=== PATIENT | male | born 1980 | race Hispanic/Latino ===

== ENCOUNTER → 2022-02-21 15:49 | Outpatient (CLI) | payer OTHER, SELFPAY ==
--- NOTE | 2022-02-21 | DI.ECHO.S_ITS ---
[place] [facility]+ [facility] +---------+ : : [address] : : : : [id number] : : : : Phone: [phone]+ Echocardiogram Report + + :Name: ISATU ISLAS Study Date: 02/21/2022 Height: 72 in : :[facility] ReadingLocation: Weight: 275 lb : : Gender: Male BSA: 2.4 m2 : :: 1980 Age: 41 yrs BP: 159/106 mmHg: :Reason For Study: HYPERTENSION : :Ordering Physician: NORRIS, : :TIA Grijalva Performed By: Loulou Fuller : :Referring: TIA PISANO : + + Interpretation Summary 1) Normal left ventricular size, thickness, wall motion, and systolic function (EF 55-60%). 2) Normal right ventricular size and function. 3) No significant valvular abnormalities. 4) Hypertension present during the study (BP 159/106mm Hg). 5) No prior Echo available for comparison. Procedure: A two-dimensional transthoracic echocardiogram with color flow and Doppler was performed. The study quality was technically adequate. There is no prior echocardiogram noted for this patient. The patient was in sinus bradycardia with heart rates between 48-55 bpm during the exam. Left Ventricle: The left ventricle is normal in size and wall thickness. The ejection fraction is estimated to be 55-60%. Left ventricular systolic function appears normal without focal wall motion abnormalities. Diastolic parameters suggest probable normal left ventricular diastolic function and normal filling pressures. Right Ventricle: The right ventricle is normal in size and function. Atria: The left atrial size is normal. Right atrial size is normal. There is no Doppler evidence for an interatrial shunt. Mitral Valve: The mitral valve is normal in structure and function. There is mild mitral regurgitation. Aortic Valve: The aortic valve is trileaflet. The aortic valve opens well. There is no aortic valve stenosis. No aortic regurgitation is present. Tricuspid Valve: The tricuspid valve is normal in structure and function. There is a trace or physiologic amount of tricuspid regurgitation. Pulmonic Valve: The pulmonic valve leaflets are thin and pliable; valve motion is normal. There is no pulmonic valvular regurgitation. Great Vessels: The aortic root is normal size. The dimensions of the ascending aorta are normal. The IVC is of normal diameter and collapses greater than 50% with a sniff. This suggests a low right atrial pressure of 3 mm Hg. Pericardium/ Pleura There is no pericardial effusion. There is no pleural effusion. MMode/2D Measurements & Calculations LVIDd: 5.1 cm LVOT diam: 2.2 cm LVIDs: 3.4 cm Ao root diam: 3.2 cm FS: 32.8 % asc Aorta Diam: 3.4 cm IVSd: 0.88 cm Ao Arch Diam (Prox Trans): 2.9 cm LVPWd: 0.81 cm LV smith. diameter/BSA (cm/m^2): 2.1 LV sys. diameter/BSA (cm/m^2): 1.4 LA A2 area: 23.9 cm2 RA long axis: 6.1 cm LA A4 area: 20.9 cm2 RA area: 18.3 cm2 LA length (vol): 5.8 cm RA vol: 46.4 ml LA vol: 72.3 ml RA : 19.0 ml/m2 LA vol index: 29.7 ml/m2 IVC diam: 1.9 cm RVD1 (basal): 3.7 cm RVD2 (mid): 4.1 cm TAPSE: 1.9 cm Doppler Measurements & Calculations Ao V2 max: 144.6 cm/sec LVOT Max Aniceto: 96.2 cm/sec Ao V2 mean: 96.0 cm/sec LV V1 max P.7 mmHg Ao max P.4 mmHg LV V1 VTI: 21.2 cm Ao mean P.3 mmHg AIDA(I,D): 2.7 cm2 Ao V2 VTI: 30.7 cm AIDA(V,D): 2.6 cm2 sev ratio: 0.69 AIDA indexed to BSA (cm^2/m^2): 1.1 MV E max aniceto: 88.1 cm/sec PA V2 max: 129.3 cm/sec MV A max aniceto: 46.7 cm/sec PA V2 mean: 88.7 cm/sec MV E/A: 1.9 PA mean P.6 mmHg Med Peak E' Aniceto: 9.5 cm/sec PA pr(Accel): 32.8 mmHg E/E' med: 9.3 Lat Peak E' Aniceto: 13.9 cm/sec E/E' lat: 6.3 E/e' average: 7.8 MV dec time: 0.21 sec SV(LVOT): 83.1 ml Reading Physician:05:54 PM
== END ==
PROVIDERS: Referring Provider Family Medicine; Visit Provider Family Medicine
DX: I34.0 Nonrheumatic mitral (valve) insufficiency (principal); R06.89 Other abnormalities of breathing; I10 Essential (primary) hypertension; R53.83 Other fatigue; R06.00 Dyspnea, unspecified
CPT/HCPCS: 93306

== ENCOUNTER → 2022-08-06 09:36 | Outpatient (CLI) | payer OTHER, SELFPAY ==
--- NOTE | 2022-08-06 09:39 | DI.MRI.S_ITS ---
PROCEDURE: MR CERVICAL SPINE WO CON INDICATIONS: RADICULOPATHY CERVICAL REGION/PARESTHESIA OF SKIN TECHNIQUE: Noncontrast sagittal T1 spin echo and T2 fast spin echo, sagittal STIR, foraminal oblique sagittal T2 fast spin echo, and axial gradient echo or T2 fast spin echo through the cervical spine. COMPARISON: None. FINDINGS: Image quality: Excellent. Alignment and Curvature: Normal cervical vertebral body height and alignment. Bone Marrow: No suspicious focal marrow signal abnormality or bone marrow edema. Spinal Cord: Visualized spinal cord has normal size and signal. No cerebellar tonsillar herniation. Regional Soft Tissues: Prevertebral and paraspinous soft tissues are within normal limits. C2-C3: No spinal canal or neural foraminal stenosis. C3-C4: Moderate left and mild right neural foraminal narrowing due to facet and uncovertebral hypertrophy. No spinal canal stenosis. C4-C5: Mild spinal canal stenosis due to posterior disc-osteophyte complex flattening the ventral cord. Mild bilateral neural foraminal narrowing due to facet and uncovertebral hypertrophy. C5-C6: Bradley's spinal canal stenosis due to posterior disc osteophyte complex flattening and posteriorly displacing the cord with near complete effacement of CSF surrounding the cord. Facet and uncovertebral hypertrophy combine to produce severe left and moderate right neural foraminal stenosis. C6-C7: Mild spinal canal stenosis due to posterior disc osteophyte complex. Moderate bilateral neural foraminal narrowing. C7-T1: No spinal canal or neural foraminal stenosis. IMPRESSION: Multilevel multifactorial degenerative changes, worst at C5-C6. Dictated by: Eliazar Szymanski M.D. on 08/07/2022 at 9:10 Approved by: Eliazar Szymanski M.D. on 08/07/2022 at 9:13
== END ==
PROVIDERS: PCP Family Medicine; Referring Provider Family Medicine; Visit Provider Family Medicine
DX: M47.22 Other spondylosis with radiculopathy, cervical region (principal); R20.2 Paresthesia of skin
CPT/HCPCS: 72141

== ENCOUNTER → 2022-09-20 14:10 | Outpatient (CLI) | payer OTHER, SELFPAY ==
[2022-09-20 15:14] LABS: COVID19 -Nasal RAPID Negative (Negative)
--- NOTE | 2022-09-20 20:29 | DI.NM.S_ITS ---
DATE OF SERVICE: 09/20/2022 PROCEDURE: Exercise stress test. INDICATION: Chest pain. CARDIAC STRESS: The patient underwent exercise stress test under the supervision of an attending staff using standard [place] protocol. He walked on Chester protocol for about 9 minutes and 41 seconds, achieved maximum heart rate of 163, which was 92 percent of target heart rate. Baseline blood pressure 138/90 and peak blood pressure 180/96 mmHg. Baseline rhythm was sinus. During stress, no convincing ischemic changes seen. No significant arrhythmias seen. At the peak exercise, patient has dull, on a scale of 1-10, four in intensity chest discomfort, which got resolved 5 minutes in recovery. At that time, no ischemic changes or significant arrhythmias seen. Had some shortness of breath, as well. CONCLUSION: Exercise stress test is negative for inducible ischemia. The patient walked on [place] protocol for 9 minutes and 41 seconds, achieved 10.1 metabolic equivalents of workload and functional aerobic impairment positive 18 percent. Baseline blood pressure 138/90 mmHg and peak blood pressure 180/96 mmHg. At the peak exercise, mild chest discomfort, which got resolved in 5 minutes in recovery without any associated ischemic changes or significant arrhythmias. Overall, low-risk exercise stress test. David Mitchel - RODOLFO/abdirashid/radha doc#: [id number]/job#: [id number] dd: 09/20/2022 17:30:00 dt: 09/20/2022 19:18:00 DICTATING /COPIES TO: Chandler Peraza MD COPIES MNE: VANESSA;
== END ==
PROVIDERS: PCP Family Medicine; Referring Provider Internal Medicine Cardiovascular Disease; Visit Provider Internal Medicine Cardiovascular Disease
DX: R07.9 Chest pain, unspecified (principal); Z20.822 Contact with and (suspected) exposure to COVID-19
CPT/HCPCS: 87635; 93017

== ENCOUNTER 2024-12-24 18:18 | Emergency (ER) | payer OTHER, SELFPAY ==
[2024-12-24 18:27] VITALS: BP 155/100; PULSE 76; RESP 14; TEMP 36.6; O2SAT 97; BMI 37.3
--- NOTE | 2024-12-24 18:32 | DI.RAD.S_ITS ---
PROCEDURE: XR FINGER RT MIN 2V INDICATIONS: crush injury TECHNIQUE: AP hand, 2 views of the right 5th finger(s) acquired. COMPARISON: None. FINDINGS: Bones: No fractures or dislocations. No suspicious bony lesions. Soft tissues: No suspicious soft tissue calcifications. IMPRESSION: No acute bony abnormality. Dictated by: Neha Houston M.D. on 12/24/2024 at 19:17 Approved by: Neha Houston M.D. on 12/24/2024 at 19:18
--- NOTE | 2024-12-24 21:31 | ED_ITS ---
HPI - Extremity Injury (Upper) General Chief Complaint: Extremity Injury, Upper Stated Complaint: rt 5th finger cut Time Seen by Provider: 12/24/24 20:46 Source: patient Mode of arrival: Ambulatory History of Present Illness HPI narrative: 44-year-old male right-handed, caught 5th finger tip in part of his truck, smashed laceration injury about 5:30 p.m. tonight 4 hours ago. Last tetanus shot to date. No other injuries. No redness or streaking or swelling to the hand. No pain palmar right hand, other fingers of the right hand, right wrist, right forearm, right elbow, right upper arm or shoulder. Related Data Previous Rx's Medication Instructions Recorded cephalexin 500 mg capsule 500 mg PO QID 7 days #28 caps 12/25/24 hydrocodone 5 mg-acetaminophen 325 1 tab PO Q6H PRN pain #7 tabs 12/25/24 mg tablet Allergies Allergy/AdvReac Type Severity Reaction Status Date / Time No Known Drug Allergies Allergy Verified 12/25/24 00:45 Patient History Social History Smoking Status: Never smoker Smoking Status: Never smoker Exam Narrative Exam Narrative: GENERAL: Well-developed patient, in mild distress. HEAD: Atraumatic. Normocephalic. EYES: Pupils equal round and reactive. Extraocular motions intact. No scleral icterus. No injection or drainage. ENT: Nose without bleeding, purulent drainage. Throat without erythema, tonsillar hypertrophy or exudate. Airway patent. NECK: Trachea midline. Non tender CARDIOVASCULAR: Regular rate and rhythm without murmurs, gallops, or rubs. RESPIRATORY: Clear to auscultation. Breath sounds equal bilaterally. No wheezes, rales, or rhonchi. GASTROINTESTINAL: Abdomen soft, non-tender, nondistended. EXTREMITIES: Right hand with volar distal 5th finger tip laceration about 1.5 cm horizontal 90 degress pizza shape, able to flex and extend finger, no subungual hematoma in the opposite side. No visible foreign body or tendon or bone structures. BACK: Nontender without deformity or crepitance. No flank tenderness. NEURO: AOx3. Motor functions grossly nonfocal. SKIN: No rash or erythema of visible areas Initial Vital Signs Initial Vital Signs: Vital Signs Temperature 97.8 F 12/24/24 18:27 Pulse Rate 76 12/24/24 18:27 Respiratory Rate 14 12/24/24 18:27 Blood Pressure 155/100 H 12/24/24 18:27 Pulse Oximetry 97 12/24/24 18:27 Oxygen Delivery Method Room Air 12/24/24 18:27 Procedures Laceration Repair Laceration 1: Time of procedure: 01:15 Site: hand (fifth finger) Side (If applicable): right Size (cm): 1.5 Description: irregular (L shaped volar fingertip fifth finger) Depth: simple, single layer Local Anesthetic: lidocaine 1% (digital block) Amount of anesthesia used (mL): 4 Skin layer closed with: nylon Skin layer suture size: 4-0 Number of sutures: 6 Technique: simple, interrupted Course Orders Ordered: ED Orders 12/24/24 18:32 XR finger RT min 2V Stat Discontinued Medications Hydrocodone Bitart/Acetaminophen (Hydrocodone/Acet 5/325 Prepack) 1 bottle MISC DIRECTED ONE Stop: 12/25/24 01:34 Last Admin: 12/25/24 01:42 Dose: 1 bottle Documented By: Bacitracin (Bacitracin Oint 0.9 Gm Pckt) 1 applic TOP NOW ONE Stop: 12/25/24 01:20 Last Admin: 12/25/24 01:22 Dose: 1 applic Documented By: Cephalexin HCl (Cephalexin 250 Mg Capsule) 500 mg PO NOW ONE Stop: 12/25/24 01:29 Last Admin: 12/25/24 01:41 Dose: 500 mg Documented By: Lidocaine HCl (Lidocaine 1% 20 Ml) 3 ml SUBCUT NOW ONE Stop: 12/25/24 00:45 Last Admin: 12/25/24 00:51 Dose: 3 ml Documented By: MR Vital Signs Vital signs: Vital Signs - 8 hr 12/25/24 01:45 Temperature 97.8 F Pulse Rate 62 Respiratory Rate 14 Blood Pressure 146/91 H Oxygen Delivery Method Room Air MDM - Extremity Injury (Upper) MDM Narrative Medical decision making narrative: 44-year-old right-handed male sustained laceration injury to the right 5th fingertip, laceration. Tetanus up-to-date. NKDA. We will need primary closure. X-ray from triage showed no evidence of fracture. See radiology report. Wound closed with digital block, 6 simple interrupted sutures to close L-shaped wound. Antibiotic ointment, Xeroform, finger splint. Wound check advised in 2 days. At risk of infection given crush injury component. Wound check 2 days with regular provider, or with Orthopedic surgery on-call Dr. Angel null, or here in the emergency department if other interim can not be made. Home with family. Home pack hydrocodone to use if needed. Prescription further antibiotics sent to pharmacy. Discharge Plan Departure Patient Disposition: Home Clinical Impression: Finger laceration Instructions: DI for Laceration Repair -- Finger Activity Restrictions/Additional Instructions: Mr Hernandez, You had smashed laceration injury to the right 5th finger fingertip, with L- shaped laceration that was closed after digital and local injection block with 6 simple sutures of nylon. X-ray prior to closure showed no fracture changes. Crush injury increases your risk for wound infection. Antibiotics cephalexin given, with prescription for further antibiotic course to take to hopefully help prevent infection. Take pain medications as needed. Consider ibuprofen as well. Hydrocodone home pack and prescription provided for use if needed. Recheck wound with your regular doctor. Or with local orthopedic surgeon Dr. Lees as listed on-call, his office information provided. Dressing change of the time of wound check in 2 days. Suture removal typically is at 7 days, but might need to happen earlier if there is developing wound infection changes. Your tetanus was up-to-date by report. Recheck earlier to this/nearest emergency department for any change worsening symptoms or any concerns prior. Thank you for allowing [facility] to take care view today. Prescriptions: New cephalexin 500 mg capsule 500 mg PO QID 7 Days Qty: 28 0RF hydrocodone-acetaminophen 5-325 mg tablet 1 tab PO Q6H PRN (Reason: pain) Qty: 7 0RF Referrals: Gloria Palacios DO [Primary Care Provider] - José Luis Lees MD [Physician] - Stand Alone Forms: Patient Portal/API/Survey
--- NOTE | 2024-12-24 23:49 | PC.NURSE ---
tetanus is up to date
[2024-12-25] MEDS: LIDOCAINE 1% 20 ML 3 ML SUBCUT (00:51)
[2024-12-25] MEDS: BACITRACIN OINT 0.9 GM PCKT 1 APPLIC TOP (01:22)
--- NOTE | 2024-12-25 01:33 | PC.NURSE ---
Finger cleaned, Bacitracin put on wound, non adhesive dressing and a finger split placed
[2024-12-25] MEDS: cephALEXin 250 MG CAPSULE 500 MG PO (01:41)
[2024-12-25] MEDS: HYDROCODONE/ACET 5/325 PREPACK 1 BOTTLE MISC (01:42)
[2024-12-25 01:45] VITALS: BP 146/91; PULSE 62; RESP 14; TEMP 36.6
== END 2024-12-25 01:46 | disposition home or self-care (01) ==
PROVIDERS: Emergency Provider Emergency Medicine; PCP Family Medicine
DX: S61.216A Laceration without foreign body of right little finger without damage to nail, initial encounter (principal); W23.0XXA Caught, crushed, jammed, or pinched between moving objects, initial encounter
CPT/HCPCS: 12001; 73140; 99283

== ENCOUNTER → 2025-11-03 07:12 | Outpatient (CLI) | payer OTHER, SELFPAY ==
--- NOTE | 2025-11-03 07:13 | DI.MRI.S_ITS ---
PROCEDURE: MR CERVICAL SPINE WO CON INDICATIONS: radiculopathy TECHNIQUE: Noncontrast sagittal T1 spin echo and T2 fast spin echo, sagittal STIR, foraminal oblique sagittal T2 fast spin echo, and axial gradient echo or T2 fast spin echo through the cervical spine. COMPARISON: [facility], MR, MR CERVICAL SPINE WO CON, 08/06/2022, 9:50. FINDINGS: Image quality: Diagnostic Alignment and Curvature: There is normal bony alignment. Bone Marrow: Marrow demonstrates normal overall signal. Spinal Cord: Visualized spinal cord has normal size and signal. No cerebellar tonsillar herniation. Paraspinous Soft Tissues: No paravertebral masses. Prevertebral soft tissues are normal in thickness. C2-C3: Mildly desiccated disc. No spinal canal or neural foraminal stenosis. C3-C4: Mildly degenerated disc osteophyte complex indents anterior thecal sac but does not result in significant spinal canal stenosis. Similar left moderate neural foraminal stenosis due to uncovertebral greater than facet arthrosis. No right neural foraminal stenosis. C4-C5: Moderate to severe spinal canal stenosis due to degenerated disc osteophyte complex and superimposed common cranially migrated, 1 x 0.5 x 0.6 cm disc extrusion (series 5, image 8; series 4, image 24). Similar mild bilateral neural foraminal stenosis due to uncovertebral and facet arthrosis. C5-C6: Similar moderate spinal canal stenosis due to degenerated disc osteophyte complex and minimal ligamentum flavum thickening. Similar left severe and right moderate neural foraminal stenosis due to uncovertebral greater than facet arthrosis. C6-C7: Similar mild spinal canal stenosis due to degenerated disc osteophyte complex and minimal ligamentum flavum thickening. Similar bilateral , right worse than left, moderate neural foraminal stenosis due to uncovertebral and facet arthrosis C7-T1: No spinal canal stenosis or neural foraminal stenosis. IMPRESSION: 1. Progressive moderate to severe spinal canal stenosis at C4-5 secondary to a cranially migrated 1 cm disc extrusion. 2. Otherwise similar multilevel spinal canal stenosis which reaches moderate at C5-6. 3. Multilevel neural foraminal stenosis which reaches severe on the left at C5- 6, otherwise as detailed above. Dictated by: Miguel Bah M.D. on 11/03/2025 at 10:38 Approved by: Miguel Bah M.D. on 11/03/2025 at 10:46
== END ==
LOC: MRI 07:12
PROVIDERS: PCP Family Medicine; Referring Provider Family Medicine; Visit Provider Family Medicine
DX: M54.12 Radiculopathy, cervical region (principal); M48.02 Spinal stenosis, cervical region; M54.2 Cervicalgia
CPT/HCPCS: 72141